=== PATIENT | female | born 1930 | race Two or more races ===

== ENCOUNTER 2017-01-18 12:26 | Inpatient (IN) | payer BC, MEDICAID ==
[~2017-01-18] VITALS: Ht 170.2 cm; Wt 76.2 kg
[2017-01-18] MEDS ORDERED: IV SET PRIMARY 1 EA INFUS.SET MC ONE (12:45)
[2017-01-18] MEDS ORDERED: IV NS 0.9% 500 ML IV ONE ×2 (12:45→13:25)
[2017-01-18] MEDS ORDERED: MORPHINE SULFATE INJ 2 MG/ML DISP.SYRIN ONE (12:45)
[2017-01-18 12:48] LABS: BASOPHILS # (AUTO) 0.3 /CMM (0.0-0.2); BASOPHILS % (AUTO) 4.9 % (0.0-2.0); DIFF TOTAL % 100 %; EOSINOPHILS # (AUTO) 0.2 /CMM (0.0-0.7); EOSINOPHILS % (AUTO) 2.3 % (0.0-6.0); HEMATOCRIT 44 % (33-45); HEMOGLOBIN 14.5 g/dL (11.5-14.8); LYMPHOCYTES # (AUTO) 1.9 /CMM (0.8-4.8); LYMPHOCYTES % (AUTO) 27.5 % (20.0-44.0); MEAN CORPUSCULAR HEMOGLOBIN 30 PG (26.0-33.0); MEAN CORPUSCULAR HGB CONC 33 g/dl (31.0-36.0); MEAN CORPUSCULAR VOLUME 90 fL (82-100); MONOCYTES # (AUTO) 0.5 /CMM (0.1-1.30); MONOCYTES % (AUTO) 7.8 % (2.0-12.0); NEUTROPHILS % (AUTO) 57.5 % (43.0-81.0); PLATELET COUNT (AUTO) 228 /CMM (150-450); RED BLOOD CELL COUNT(AUTO) 4.86 MIL/uL (4.0-5.2); WHITE BLOOD COUNT (AUTO) 6.9 K/uL (4.3-11.0)
[2017-01-18] MEDS ORDERED: MORPHINE SULFATE INJ 2 MG/ML DISP.SYRIN IV ONE (13:00)
[2017-01-18] MEDS ORDERED: IV NS 0.9% 500 ML BAG IV ONE (13:00)
[2017-01-18 13:01] LABS: INR 1.1 (0.87-1.13); PROTHROMBIN TIME 11.5 SECS (9.5-12.7)
[2017-01-18 13:04] LABS: ANION GAP 13 (5-14); CARBON DIOXIDE 26 mmol/L (21-32); CHLORIDE 109 mmol/L (98-107); CREATININE 0.9 mg/dL (0.6-1.3); GLUCOSE 117 mg/dL (74-106); POTASSIUM 3.8 mmol/L (3.5-5.1); SODIUM SERUM 144 mmol/L (136-145); UREA NITROGEN, BLOOD 32 mg/dL (7-18)
[2017-01-18 13:10] LABS: ALANINE AMINOTRANSFERASE 14 U/L (12-78); ALBUMIN 3.5 g/dL (3.4-5.0); ASPARTATE AMINOTRANSFERASE 18 U/L (15-37); BILIRUBIN,DIRECT 0.2 mg/dL (0.0-0.2); BILIRUBIN,TOTAL 0.6 mg/dL (0.2-1.0); INDIRECT BILIRUBIN 0.4 mg/dL (0.0-1.1); TOTAL PROTEIN, SERUM 7.6 g/dL (6.4-8.2)
[2017-01-18 13:13] LABS: TROPONIN I < 0.017 ng/mL (0.00-0.056)
[2017-01-18] MEDS ORDERED: PROPOFOL 20 ML IV ONE (13:24)
[2017-01-18] MEDS ORDERED: PROPOFOL 200 MG/20 ML VIAL IV ONE (13:30)
[2017-01-18] MEDS ORDERED: LOSA1TAB35 PO (14:07)
[2017-01-18] MEDS ORDERED: ERGO500047 PO (14:07)
[2017-01-18] MEDS ORDERED: ASPI81TA2 PO (14:07)
[2017-01-18 16:00] VITALS: BP 145/69
[2017-01-18] MEDS ORDERED: ZOLPIDEM TARTRATE 5 MG TABLET PO PRN (19:00)
[2017-01-18] MEDS ORDERED: MAG HYDROX/AL HYDROX/SIMETH 30 ML UDC PO PRN (19:00)
[2017-01-18] MEDS ORDERED: MAGNESIUM HYDROXIDE 30 ML UDC PO PRN (19:00)
[2017-01-18] MEDS ORDERED: ONDANSETRON HCL/PF 4 MG/2 ML VIAL IVP PRN (19:00)
[2017-01-18] MEDS ORDERED: ACETAMINOPHEN 325 MG TABLET PO PRN (19:00)
[2017-01-18] MEDS ORDERED: Z GUARD REMEDY 2 OZ OINT TP PRN (19:00)
[2017-01-18 20:00] VITALS: BP 136/57
[2017-01-18] MEDS: HYDROCODONE/APAP 5/325MG 1 EACH TABLET PO PRN (21:18)
[2017-01-18] MEDS: ENOXAPARIN SODIUM 80 MG/0.8 ML DISP.SYRIN SQ SCH (21:21)
[2017-01-19] VITALS: BP 130/60
[2017-01-19 00:11] VITALS: BP 130/60
[2017-01-19 04:00] VITALS: BP 130/65
[2017-01-19 06:49] VITALS: BP 125/65
[2017-01-19 07:25] LABS: BASOPHILS % (AUTO) 0.5 % (0.0-2.0); DIFF TOTAL % 100 %; EOSINOPHILS # (AUTO) 0.2 /CMM (0.0-0.7); HEMATOCRIT 39 % (33-45); HEMOGLOBIN 12.9 g/dL (11.5-14.8); LYMPHOCYTES # (AUTO) 1.1 /CMM (0.8-4.8); LYMPHOCYTES % (AUTO) 21.1 % (20.0-44.0); MEAN CORPUSCULAR HEMOGLOBIN 31 PG (26.0-33.0); MEAN CORPUSCULAR HGB CONC 33 g/dl (31.0-36.0); MEAN CORPUSCULAR VOLUME 92 fL (82-100); MONOCYTES # (AUTO) 0.5 /CMM (0.1-1.30); MONOCYTES % (AUTO) 9.8 % (2.0-12.0); NEUTROPHILS # (AUTO) 3.4 /CMM (1.8-8.9); NEUTROPHILS % (AUTO) 64.6 % (43.0-81.0); PLATELET COUNT (AUTO) 174 /CMM (150-450); RED BLOOD CELL COUNT(AUTO) 4.22 MIL/uL (4.0-5.2); WHITE BLOOD COUNT (AUTO) 5.3 K/uL (4.3-11.0)
[2017-01-19 07:37] LABS: CALCIUM, SERUM 8.9 mg/dL (8.5-10.1); CREATININE 0.8 mg/dL (0.6-1.3); PHOSPHORUS 3.6 mg/dL (2.5-4.9)
[2017-01-19] MEDS ORDERED: Medication Not On Formulary EA (Losartan/Hydrochlorothiazide (Losartan-Hctz 100-12.5 Mg PO SCH (09:00)
[2017-01-19] MEDS: ASPIRIN 81 MG TAB.CHEW PO SCH (09:42)
[2017-01-19] MEDS: PANTOPRAZOLE 40 MG TABLET.DR PO SCH (09:42)
[2017-01-19] MEDS: LOSARTAN POTASSIUM 50 MG TABLET PO SCH (09:43)
[2017-01-19] MEDS: HYDROCHLOROTHIAZIDE 25 MG TABLET PO SCH (09:43)
[2017-01-19] MEDS: ENOXAPARIN SODIUM 80 MG/0.8 ML DISP.SYRIN SQ SCH ×2 (09:44→21:22)
[2017-01-19] MEDS ORDERED: IV SET PRIMARY PUMP SET 1 EA INFUS.SET MC ONE (15:07)
[2017-01-19] MEDS: Magnesium 1GM/D5W 100ML PREMIX 100 ML IV SCH ×2 (15:12→17:34)
[2017-01-19] MEDS: HYDROCODONE/APAP 5/325MG 1 EACH TABLET PO PRN (15:12)
[2017-01-19 16:21] VITALS: BP 129/60
[2017-01-19 20:00] VITALS: BP 141/79
[2017-01-20 07:34] LABS: CALCIUM, SERUM 9.9 mg/dL (8.5-10.1); CREATININE 0.7 mg/dL (0.6-1.3); POTASSIUM 4.1 mmol/L (3.5-5.1)
[2017-01-20 07:38] LABS: BASOPHILS % (AUTO) 0.7 % (0.0-2.0); DIFF TOTAL % 100 %; EOSINOPHILS # (AUTO) 0.2 /CMM (0.0-0.7); EOSINOPHILS % (AUTO) 3.6 % (0.0-6.0); HEMATOCRIT 41 % (33-45); HEMOGLOBIN 13.5 g/dL (11.5-14.8); LYMPHOCYTES # (AUTO) 1.3 /CMM (0.8-4.8); LYMPHOCYTES % (AUTO) 22.7 % (20.0-44.0); MEAN CORPUSCULAR HEMOGLOBIN 30 PG (26.0-33.0); MEAN CORPUSCULAR HGB CONC 33 g/dl (31.0-36.0); MEAN CORPUSCULAR VOLUME 91 fL (82-100); MONOCYTES # (AUTO) 0.5 /CMM (0.1-1.30); MONOCYTES % (AUTO) 9.3 % (2.0-12.0); NEUTROPHILS # (AUTO) 3.6 /CMM (1.8-8.9); NEUTROPHILS % (AUTO) 63.7 % (43.0-81.0); PLATELET COUNT (AUTO) 181 /CMM (150-450); WHITE BLOOD COUNT (AUTO) 5.6 K/uL (4.3-11.0)
[2017-01-20 08:00] VITALS: BP 151/72
[2017-01-20] MEDS: PANTOPRAZOLE 40 MG TABLET.DR PO SCH (08:06)
[2017-01-20] MEDS: ERGOCALCIFEROL (VITAMIN D 2) 50,000 UNIT CAPSULE PO SCH (08:06)
[2017-01-20] MEDS: HYDROCHLOROTHIAZIDE 25 MG TABLET PO SCH (08:07)
[2017-01-20] MEDS: ASPIRIN 81 MG TAB.CHEW PO SCH (08:07)
[2017-01-20] MEDS: ENOXAPARIN SODIUM 80 MG/0.8 ML DISP.SYRIN SQ SCH ×2 (08:08→21:13)
[2017-01-20] MEDS: LOSARTAN POTASSIUM 50 MG TABLET PO SCH (08:08)
[2017-01-20] MEDS: HYDROCODONE/APAP 5/325MG 1 EACH TABLET PO PRN (15:41)
[2017-01-20 16:00] VITALS: BP 148/79
[2017-01-20 20:00] VITALS: BP 117/53
[2017-01-20 22:00] VITALS: BP 117/53
[2017-01-21] MEDS: HYDROCODONE/APAP 5/325MG 1 EACH TABLET PO PRN ×2 (01:19→15:24)
[2017-01-21 08:00] VITALS: BP 119/60
[2017-01-21] MEDS: HYDROCHLOROTHIAZIDE 25 MG TABLET PO SCH (08:30)
[2017-01-21] MEDS: LOSARTAN POTASSIUM 50 MG TABLET PO SCH (08:31)
[2017-01-21] MEDS: ASPIRIN 81 MG TAB.CHEW PO SCH (08:31)
[2017-01-21] MEDS: PANTOPRAZOLE 40 MG TABLET.DR PO SCH (08:31)
[2017-01-21] MEDS: ENOXAPARIN SODIUM 80 MG/0.8 ML DISP.SYRIN SQ SCH ×2 (08:36→21:46)
[2017-01-21] MEDS ORDERED: IV SET PRIMARY PUMP SET 1 EA INFUS.SET MC ONE (10:11)
[2017-01-21] MEDS: IV NS 0.9% 1,000 ML IV PRN ×2 (10:20→18:10)
[2017-01-21 11:19] LABS: TROPONIN I < 0.017 ng/mL (0.00-0.056)
[2017-01-21 11:26] LABS: THYROID STIMULATING HORMONE 0.709 uIU/mL (0.358-3.74)
[2017-01-21 16:00] VITALS: BP 110/72
[2017-01-21 20:00] VITALS: BP 143/71
[2017-01-21 20:26] VITALS: BP 143/71
[2017-01-22] MEDS: IV NS 0.9% 1,000 ML IV PRN (00:59)
[2017-01-22] MEDS: HYDROCODONE/APAP 5/325MG 1 EACH TABLET PO PRN ×3 (04:23→17:38)
[2017-01-22 07:58] LABS: CALCIUM, SERUM 9.4 mg/dL (8.5-10.1); CREATININE 0.6 mg/dL (0.6-1.3); PHOSPHORUS 3.5 mg/dL (2.5-4.9)
[2017-01-22 08:00] VITALS: BP 136/70
[2017-01-22] MEDS: PANTOPRAZOLE 40 MG TABLET.DR PO SCH (08:12)
[2017-01-22] MEDS: ASPIRIN 81 MG TAB.CHEW PO SCH (08:12)
[2017-01-22] MEDS: HYDROCHLOROTHIAZIDE 25 MG TABLET PO SCH (08:13)
[2017-01-22] MEDS: LOSARTAN POTASSIUM 50 MG TABLET PO SCH (08:13)
[2017-01-22] MEDS: ENOXAPARIN SODIUM 80 MG/0.8 ML DISP.SYRIN SQ SCH (08:14)
[2017-01-22 08:26] LABS: ALBUMIN 2.8 g/dL (3.4-5.0); BILIRUBIN,TOTAL 0.4 mg/dL (0.2-1.0); TOTAL PROTEIN, SERUM 6.8 g/dL (6.4-8.2)
[2017-01-22] MEDS: Z GUARD REMEDY 2 OZ OINT TP SCH (10:30)
[2017-01-22] MEDS ORDERED: IV NS 0.9% 1,000 ML IV PRN (10:46)
[2017-01-22] MEDS ORDERED: SECONDARY IV SET 1 EA INFUS.SET MC ONE (11:06)
[2017-01-22] MEDS: Magnesium 1GM/D5W 100ML PREMIX 100 ML IV SCH ×2 (11:10→12:26)
[2017-01-22 16:17] VITALS: BP 148/69
[2017-01-22 19:00] VITALS: BP 124/63
[2017-01-22] MEDS ORDERED: ENOXAPARIN SODIUM 80 MG/0.8 ML DISP.SYRIN SQ ONE (21:00)
[2017-01-23] VITALS (10 sets, daily range): BP systolic 110–143; BP diastolic 45–76
[2017-01-23] MEDS: HYDROCODONE/APAP 5/325MG 1 EACH TABLET PO PRN ×2 (03:42→20:33)
[2017-01-23 07:25] LABS: BASOPHILS % (AUTO) 0.2 % (0.0-2.0); DIFF TOTAL % 100 %; EOSINOPHILS # (AUTO) 0.3 /CMM (0.0-0.7); EOSINOPHILS % (AUTO) 5.3 % (0.0-6.0); HEMATOCRIT 37 % (33-45); HEMOGLOBIN 12.6 g/dL (11.5-14.8); LYMPHOCYTES # (AUTO) 1.2 /CMM (0.8-4.8); LYMPHOCYTES % (AUTO) 23.9 % (20.0-44.0); MEAN CORPUSCULAR HEMOGLOBIN 31 PG (26.0-33.0); MEAN CORPUSCULAR HGB CONC 34 g/dl (31.0-36.0); MEAN CORPUSCULAR VOLUME 91 fL (82-100); MONOCYTES # (AUTO) 0.4 /CMM (0.1-1.30); MONOCYTES % (AUTO) 9.1 % (2.0-12.0); NEUTROPHILS % (AUTO) 61.5 % (43.0-81.0); PLATELET COUNT (AUTO) 180 /CMM (150-450); RED BLOOD CELL COUNT(AUTO) 4.09 MIL/uL (4.0-5.2); WHITE BLOOD COUNT (AUTO) 4.9 K/uL (4.3-11.0)
[2017-01-23] MEDS: PANTOPRAZOLE 40 MG TABLET.DR PO SCH (07:30)
[2017-01-23 07:49] LABS: ALBUMIN 2.7 g/dL (3.4-5.0); BILIRUBIN,TOTAL 0.4 mg/dL (0.2-1.0); CALCIUM, SERUM 9.2 mg/dL (8.5-10.1); CREATININE 0.7 mg/dL (0.6-1.3); PHOSPHORUS 2.9 mg/dL (2.5-4.9); POTASSIUM 4.2 mmol/L (3.5-5.1); TOTAL PROTEIN, SERUM 6.4 g/dL (6.4-8.2)
[2017-01-23] MEDS: LOSARTAN POTASSIUM 50 MG TABLET PO SCH (09:00)
[2017-01-23] MEDS: ASPIRIN 81 MG TAB.CHEW PO SCH (09:00)
[2017-01-23] MEDS: Z GUARD REMEDY 2 OZ OINT TP SCH (09:00)
[2017-01-23] MEDS: HYDROCHLOROTHIAZIDE 25 MG TABLET PO SCH (09:00)
[2017-01-23] MEDS ORDERED: BUPIVACAINE MPF 0.5% W/EPI INJ 30 ML VIAL ONE (09:12)
[2017-01-23] MEDS ORDERED: KETOROLAC TROMETHAMINE INJ 30 MG/ML VIAL ONE (09:12)
[2017-01-23] MEDS ORDERED: BACITRACIN 50000 UNITS/VIAL ONE (09:12)
[2017-01-23] MEDS ORDERED: MIDAZOLAM HCL 2 MG/2ML VIAL ONE (09:22)
[2017-01-23] MEDS ORDERED: ROCURONIUM BROMIDE 50 MG/5 ML ONE (09:23)
[2017-01-23] MEDS ORDERED: FENTANYL PF 100MCG/2ML AMPUL ONE ×3 (09:23→11:16)
[2017-01-23] MEDS ORDERED: SEVOFLURANE 250 ML BOTTLE IH ONE (09:28)
[2017-01-23] MEDS ORDERED: TRANEXAMIC ACID 3,000 MG in SODIUM CHLORIDE IRRIG SOLUTION 70 ML IR ONE (09:30)
[2017-01-23] MEDS ORDERED: IV NS 0.9% 1,000 ML ONE (11:09)
[2017-01-23 11:15] LABS: HEMOGLOBIN 11.6 g/dL (11.5-14.8)
[2017-01-23] MEDS ORDERED: ZOFRAN 4mg/2ML IV PRN (13:00)
[2017-01-23] MEDS ORDERED: TYLENOL 650 MG TABLET PO PRN (13:00)
[2017-01-23] MEDS ORDERED: AMBIEN 5 MG TABLET PO PRN (13:00)
[2017-01-23] MEDS ORDERED: COLACE 250 MG CAPSULE PO PRN (13:00)
[2017-01-23] MEDS ORDERED: DULCOLAX 10 MG/SUPP.RECT RC PRN (13:00)
[2017-01-23] MEDS ORDERED: SENOKOT 8.6 MG TABLET PO PRN ×2 (13:00)
[2017-01-23] MEDS: IV LR 1000 ML 1,000 ML IV PRN (13:01)
[2017-01-23] MEDS: HYDROMORPHONE 1 MG/1 ML DISP.SYRIN IV PRN (13:01)
[2017-01-23] MEDS: ANCEF 1 G in IV D5W 50 ML IV SCH ×2 (14:34→20:29)
[2017-01-23] MEDS ORDERED: RIVAROXABAN 15 MG TABLET PO SCH (17:00)
[2017-01-23] MEDS: RIVAROXABAN 10 MG TABLET PO SCH (17:13)
[2017-01-23] MEDS ORDERED: ANESTHESIA TRAY IN PYXIS 1 EA TRAY MC ONE (18:36)
[2017-01-24] VITALS (9 sets, daily range): BP systolic 103–128; BP diastolic 44–57
[2017-01-24] MEDS: IV LR 1000 ML 1,000 ML IV PRN (03:59)
[2017-01-24 06:36] LABS: BASOPHILS % (AUTO) 0.1 % (0.0-2.0); DIFF TOTAL % 100 %; EOSINOPHILS % (AUTO) 0.3 % (0.0-6.0); HEMATOCRIT 27 % (33-45); HEMOGLOBIN 9.3 g/dL (11.5-14.8); LYMPHOCYTES # (AUTO) 1.3 /CMM (0.8-4.8); LYMPHOCYTES % (AUTO) 13.8 % (20.0-44.0); MEAN CORPUSCULAR HEMOGLOBIN 32 PG (26.0-33.0); MEAN CORPUSCULAR HGB CONC 34 g/dl (31.0-36.0); MEAN CORPUSCULAR VOLUME 92 fL (82-100); MONOCYTES # (AUTO) 0.9 /CMM (0.1-1.30); MONOCYTES % (AUTO) 9.6 % (2.0-12.0); NEUTROPHILS # (AUTO) 7.4 /CMM (1.8-8.9); NEUTROPHILS % (AUTO) 76.2 % (43.0-81.0); PLATELET COUNT (AUTO) 196 /CMM (150-450); RED BLOOD CELL COUNT(AUTO) 2.96 MIL/uL (4.0-5.2); WHITE BLOOD COUNT (AUTO) 9.8 K/uL (4.3-11.0)
[2017-01-24 07:00] LABS: ALBUMIN 2.3 g/dL (3.4-5.0); BILIRUBIN,TOTAL 0.3 mg/dL (0.2-1.0); CALCIUM, SERUM 8.8 mg/dL (8.5-10.1); CREATININE 0.9 mg/dL (0.6-1.3); PHOSPHORUS 3.4 mg/dL (2.5-4.9); POTASSIUM 4.8 mmol/L (3.5-5.1); TOTAL PROTEIN, SERUM 5.4 g/dL (6.4-8.2)
[2017-01-24] MEDS ORDERED: RIVAROXABAN 10 MG TABLET PO SCH (09:00)
[2017-01-24] MEDS: HYDROCHLOROTHIAZIDE 25 MG TABLET PO SCH (09:00)
[2017-01-24] MEDS: LOSARTAN POTASSIUM 50 MG TABLET PO SCH (09:00)
[2017-01-24] MEDS: PANTOPRAZOLE 40 MG TABLET.DR PO SCH (09:26)
[2017-01-24] MEDS: Z GUARD REMEDY 2 OZ OINT TP SCH (09:27)
[2017-01-24] MEDS ORDERED: IV SET PRIMARY PUMP SET 1 EA INFUS.SET MC ONE (10:06)
[2017-01-24] MEDS: IV NS 0.9% 1,000 ML IV PRN (10:10)
[2017-01-24 10:21] LABS: IRON, SERUM 49 ug/dl (50-175); PERCENT SATURATION 36 % (14-33); TOTAL IRON BINDING CAPACITY 137 ug/dl (250-450)
[2017-01-24] MEDS: HYDROCODONE/APAP 5/325MG 1 EACH TABLET PO PRN (13:14)
[2017-01-24] MEDS: RIVAROXABAN 10 MG TABLET PO SCH (17:21)
[2017-01-24] MEDS ORDERED: IV NS 0.9% 250 ML IV ONE (18:55)
[2017-01-24] MEDS ORDERED: BLOOD IV SET 1 EA INFUS.SET MC ONE (18:56)
[2017-01-25] VITALS (15 sets, daily range): BP systolic 104–147; BP diastolic 49–70
[2017-01-25] MEDS: HYDROMORPHONE 1 MG/1 ML DISP.SYRIN IV PRN ×3 (06:47→14:01)
[2017-01-25 08:13] LABS: BASOPHILS % (AUTO) 0.4 % (0.0-2.0); DIFF TOTAL % 100 %; EOSINOPHILS # (AUTO) 0.1 /CMM (0.0-0.7); EOSINOPHILS % (AUTO) 1.7 % (0.0-6.0); HEMATOCRIT 30 % (33-45); LYMPHOCYTES # (AUTO) 1.8 /CMM (0.8-4.8); MEAN CORPUSCULAR HEMOGLOBIN 30 PG (26.0-33.0); MEAN CORPUSCULAR HGB CONC 33 g/dl (31.0-36.0); MEAN CORPUSCULAR VOLUME 90 fL (82-100); MONOCYTES % (AUTO) 11.4 % (2.0-12.0); NEUTROPHILS # (AUTO) 5.4 /CMM (1.8-8.9); NEUTROPHILS % (AUTO) 64.5 % (43.0-81.0); PLATELET COUNT (AUTO) 167 /CMM (150-450); RED BLOOD CELL COUNT(AUTO) 3.32 MIL/uL (4.0-5.2); WHITE BLOOD COUNT (AUTO) 8.4 K/uL (4.3-11.0)
[2017-01-25 08:43] LABS: ALBUMIN 2.3 g/dL (3.4-5.0); BILIRUBIN,TOTAL 1.1 mg/dL (0.2-1.0); CALCIUM, SERUM 8.3 mg/dL (8.5-10.1); CREATININE 0.7 mg/dL (0.6-1.3); PHOSPHORUS 2.7 mg/dL (2.5-4.9); POTASSIUM 4.3 mmol/L (3.5-5.1); TOTAL PROTEIN, SERUM 5.5 g/dL (6.4-8.2)
[2017-01-25] MEDS: PANTOPRAZOLE 40 MG TABLET.DR PO SCH (08:44)
[2017-01-25] MEDS: LOSARTAN POTASSIUM 50 MG TABLET PO SCH (08:45)
[2017-01-25] MEDS: Z GUARD REMEDY 2 OZ OINT TP SCH (08:46)
[2017-01-25] MEDS: HYDROCODONE/APAP 5/325MG 1 EACH TABLET PO PRN ×2 (09:10→17:36)
[2017-01-25] MEDS: IV NS 0.9% 1,000 ML IV PRN (12:14)
[2017-01-25] MEDS: RIVAROXABAN 10 MG TABLET PO SCH (17:05)
[2017-01-26] MEDS: HYDROMORPHONE 1 MG/1 ML DISP.SYRIN IV PRN ×4 (00:38→15:52)
[2017-01-26] MEDS: IV NS 0.9% 1,000 ML IV PRN ×2 (03:30→16:09)
[2017-01-26 08:07] VITALS: BP 115/82
[2017-01-26] MEDS: LOSARTAN POTASSIUM 50 MG TABLET PO SCH (08:59)
[2017-01-26] MEDS: PANTOPRAZOLE 40 MG TABLET.DR PO SCH (09:00)
[2017-01-26] MEDS: Z GUARD REMEDY 2 OZ OINT TP SCH (09:00)
[2017-01-26 09:52] LABS: HEMOGLOBIN 8.1 g/dL (11.5-14.8)
[2017-01-26] MEDS ORDERED: Sennosides PO (11:04)
[2017-01-26] MEDS ORDERED: HYDR-3326 PO (11:04)
[2017-01-26] MEDS ORDERED: RIVA10TA PO (11:04)
[2017-01-26 16:00] VITALS: BP 129/62
[2017-01-26] MEDS: RIVAROXABAN 10 MG TABLET PO SCH (18:08)
[2017-01-26 20:00] VITALS: BP 126/45
[2017-01-26 22:00] VITALS: BP 129/45
[2017-01-27] MEDS: HYDROMORPHONE 1 MG/1 ML DISP.SYRIN IV PRN ×3 (01:41→10:30)
[2017-01-27] MEDS: IV NS 0.9% 1,000 ML IV PRN (06:38)
[2017-01-27 08:00] VITALS: BP 122/51
[2017-01-27 08:23] VITALS: BP 122/59
[2017-01-27] MEDS: PANTOPRAZOLE 40 MG TABLET.DR PO SCH (08:23)
[2017-01-27] MEDS: Z GUARD REMEDY 2 OZ OINT TP SCH (08:23)
[2017-01-27] MEDS: ERGOCALCIFEROL (VITAMIN D 2) 50,000 UNIT CAPSULE PO SCH (08:23)
[2017-01-27] MEDS: LOSARTAN POTASSIUM 50 MG TABLET PO SCH (08:23)
[2017-01-27] MEDS ORDERED: MENTHOL/CETYLPYRD (CEPACOL) 1 LOZ LOZENGE PO PRN (10:00)
[2017-01-28 11:26] LABS: *SPE ALBUMIN 1.9 g/dL (2.9-4.4)
== END 2017-01-27 12:45 | disposition hospice, home (50) | DRG 301 ==
LOC: ER 12:29 → TELE 14:45 → MED 01-19 08:54
PROVIDERS: ADMIT Family Medicine; ATTEND Family Medicine
DX: T84.021A Dislocation of internal left hip prosthesis, initial encounter (principal); N17.0 Acute kidney failure with tubular necrosis; I48.91 Unspecified atrial fibrillation; E55.9 Vitamin D deficiency, unspecified; D68.59 Other primary thrombophilia; I10 Essential (primary) hypertension; Y79.2 Prosthetic and other implants, materials and accessory orthopedic devices associated with adverse incidents; Y92.009 Unspecified place in unspecified non-institutional (private) residence as the place of occurrence of the external cause; M16.11 Unilateral primary osteoarthritis, right hip; M85.80 Other specified disorders of bone density and structure, unspecified site; Z91.81 History of falling; D62 Acute posthemorrhagic anemia; I27.2 Other secondary pulmonary hypertension; I34.0 Nonrheumatic mitral (valve) insufficiency; I35.1 Nonrheumatic aortic (valve) insufficiency; I70.0 Atherosclerosis of aorta; I82.411 Acute embolism and thrombosis of right femoral vein
CPT/HCPCS: 36415; 71010-TC; 72170-TC; 73020; 73510-TC; 80048-TC; 80053-TC; 80061-TC; 80076-TC; 82728-TC; 83540-TC; 83735-TC; 84100-TC; 84155; 84165; 84439-TC; 84443-TC; 84484-TC; 85025-TC; 85027-TC; 85730-TC; 86850-TC; 86921-TC; 87081-TC; 93307-TC; 93970-TC; 97001-TC; 97530-TC; A4217; A6253; A6403; J0690; J1170; J1650; J1885; J2250; J2270; J2704; J3010; J3475; J3490; J7030; J7040; J7050; J7060; J7120; P9016-BL

== ENCOUNTER 2017-02-13 16:17 | Inpatient (IN) | payer BC ==
[~2017-02-13] VITALS: Ht 165.1 cm; Wt 67.6 kg
[~2017-02-13 16:17] MED LIST: ASPI81TA2 PO; ERGO500047 PO; HYDR-3326 PO; LOSA1TAB35 PO; RIVA10TA PO; Sennosides PO
--- NOTE | 2017-02-13 16:20 | NUR ---
PT BIBRA FROM HOME TO ER BED 09. PER REPORT, FEVER W/ NOTED CLOUDY URINE IN THE BAG. GOWNED AND PLACED ON MONITOR. TACHYCARDIC SUPERVISOR BOAT OUTFITTING. 100 F RECTAL TEMP. PT IS VERBALLY NON RESPONSIVE. AWAITNG MD HE.
--- NOTE | 2017-02-13 16:24 | NUR ---
DR DILLON AT BEDSIDE FOR EVAL.
[2017-02-13] MEDS ORDERED: IV NS 0.9% 500 ML BAG IV ONE (16:30)
--- NOTE | 2017-02-13 16:36 | NUR ---
IV LINE STARTEED BLOOD DRAWN AND SENT TO LAB.
[2017-02-13] MEDS ORDERED: IV NS 0.9% 500 ML IV ONE (16:40)
[2017-02-13] MEDS ORDERED: IV SET PRIMARY 1 EA INFUS.SET MC ONE (16:40)
[2017-02-13 16:46] LABS: BASOPHILS # (AUTO) 0.1 /CMM (0.0-0.2); BASOPHILS % (AUTO) 0.6 % (0.0-2.0); EOSINOPHILS # (AUTO) 0.2 /CMM (0.0-0.7); EOSINOPHILS % (AUTO) 2.1 % (0.0-6.0); HEMATOCRIT 33 % (33-45); HEMOGLOBIN 10.7 g/dL (11.5-14.8); LYMPHOCYTES # (AUTO) 1.5 /CMM (0.8-4.8); LYMPHOCYTES % (AUTO) 18.1 % (20.0-44.0); MEAN CORPUSCULAR HEMOGLOBIN 30 PG (26.0-33.0); MEAN CORPUSCULAR HGB CONC 32 g/dl (31.0-36.0); MEAN CORPUSCULAR VOLUME 92 fL (82-100); MONOCYTES # (AUTO) 0.5 /CMM (0.1-1.30); MONOCYTES % (AUTO) 6.4 % (2.0-12.0); NEUTROPHILS % (AUTO) 72.8 % (43.0-81.0); PLATELET COUNT (AUTO) 367 /CMM (150-450); RDW COEFFICIENT OF VARIATION 15.2 (11.5-15.0); RED BLOOD CELL COUNT(AUTO) 3.62 MIL/uL (4.0-5.2); WHITE BLOOD COUNT (AUTO) 8.3 K/uL (4.3-11.0)
[2017-02-13 16:59] LABS: CALCIUM, SERUM 9.5 mg/dL (8.5-10.1); CARBON DIOXIDE 27 mmol/L (21-32); CHLORIDE 107 mmol/L (98-107); CREATININE 0.8 mg/dL (0.6-1.3); GLUCOSE 116 mg/dL (74-106); POTASSIUM 4.2 mmol/L (3.5-5.1); SODIUM SERUM 144 mmol/L (136-145); UREA NITROGEN, BLOOD 23 mg/dL (7-18)
[2017-02-13 17:05] LABS: ALANINE AMINOTRANSFERASE 13 U/L (12-78); ALBUMIN 3.1 g/dL (3.4-5.0); ALKALINE PHOSPHATASE 143 U/L (46-116); ASPARTATE AMINOTRANSFERASE 23 U/L (15-37); BILIRUBIN,DIRECT 0.4 mg/dL (0.0-0.2); BILIRUBIN,TOTAL 1.1 mg/dL (0.2-1.0); INR 1.1 (0.87-1.13); PROTHROMBIN TIME 11.8 SECS (9.5-12.7); TOTAL PROTEIN, SERUM 7.5 g/dL (6.4-8.2)
[2017-02-13 17:07] LABS: TROPONIN I < 0.017 ng/mL (0.00-0.056)
[2017-02-13 17:09] LABS: LACTIC ACID 1.4 mmol/L (0.4-2.0)
--- NOTE | 2017-02-13 17:37 | NUR ---
PT TO RADIOLOGY FOR HEAD CT SCAN VIA [facility].
[2017-02-13 18:03] LABS: APPEARANCE,URINE CLOUDY (CLEAR); BILIRUBIN,URINE 1+ (NEGATIVE); BLOOD, URINE 3+ Ery/uL (NEGATIVE); COLOR,URINE YELLOW (YELLOW); KETONES,URINE TRACE (NEGATIVE); LEUKOCYTE ESTERASE ,URINE 1+ (NEGATIVE); NITRITE, URINE POSITIVE (NEGATIVE); PROTEIN,URINE 2+ mg/dl (NEGATIVE); UGLUCOSE NEGATIVE (NEGATIVE); UROBILINOGEN,URINE >=8.0 EU/dL (0.2)
[2017-02-13 18:13] LABS: ADD URINE CULTURE YES; BACTERIA,URINE Many /HPF (None Seen); SQUAMOUS EPITHELIAL CELL,UR Few /HPF (None Seen); WBC,URINE 51-80 /HPF (0-3)
[2017-02-13 18:14] LABS: URINE AMORPHOUS PHOSPHATES Moderate /HPF (None Seen)
--- NOTE | 2017-02-13 18:14 | NUR ---
PAGED ELIZA HILTON.
--- NOTE | 2017-02-13 18:22 | NUR ---
REPORT GIVEN TO RUSSEL. PT AWAITING TRANSFER TO FLOOR.
[2017-02-13] MEDS ORDERED: CEFTRIAXONE 1 G in IV D5W 50 ML IV ONE (18:30)
[2017-02-13] MEDS ORDERED: CEFTRIAXONE 1GM BAG (ER ONLY) 50 ML IV ONE (18:33)
[2017-02-13] MEDS ORDERED: IV SET PRIMARY PUMP SET 1 EA INFUS.SET MC ONE ×2 (18:33→20:07)
[2017-02-13] MEDS ORDERED: HYDROCODONE/APAP 5/325MG 1 EACH TABLET PO PRN (19:00)
[2017-02-13] MEDS ORDERED: Z GUARD REMEDY 2 OZ OINT TP PRN (19:00)
[2017-02-13] MEDS ORDERED: ACETAMINOPHEN 325 MG TABLET PO PRN (19:00)
[2017-02-13] MEDS ORDERED: ONDANSETRON HCL/PF 4 MG/2 ML VIAL IVP PRN (19:00)
[2017-02-13] MEDS ORDERED: MAG HYDROX/AL HYDROX/SIMETH 30 ML UDC PO PRN (19:00)
--- NOTE | 2017-02-13 19:20 | NUR ---
RN NOTE Received patient from ER via gurney as accompanied by ER staff. Patient awake, verbally responsive. V/S BP111/65 T97.7 P99 R22 O2 sat 98% @RA. IV site on RAC #18 intact, continue on ATB (Rocephin) per ER nurse. Will endorse to next shift for BRAXTON.
--- NOTE | 2017-02-13 19:22 | NUR ---
RN NOTE Called Pharmacy and spoke with Jared to adjust timing for Rocephin order.
--- NOTE | 2017-02-13 19:30 | NUR ---
UNION CARPENTER INITIAL NOTE RECEIVED PT SLEEPING BUT EASILY AROUSED, FAMILY AT BEDSIDE, PT IS FARSI SPEAKING, FAMILY STATES THAT SHE IS CONFUSED AND HAS BEEN FOR 2DAYS NOW, ROCEPHIN IS CURRENTLY RUNNING THROUGH RIGHT AC #18, ACCORDING TO AM NURSE ATB WAS STARTED IN ER AND CONTINUED ONCE PT ARRIVED ON OUR FLOOR, NS WILL BE STARTED AT 75ML/HR FOR HYDRATION, PT WILL BE MAINTAINED CLEAN/DRY AND COMFORTABLE, SAFETY MEASURES WILL BE MAINTAINED, NEEDS WILL BE ANTICIPATED AND ATTENDED TO DURING HOURLY ROUNDS OR NEEDED.
[2017-02-13 20:00] VITALS: BP 137/55
[2017-02-13] MEDS: IV NS 0.9% 1,000 ML IV PRN (20:11)
[2017-02-13] MEDS ORDERED: MAGNESIUM HYDROXIDE 30 ML UDC PO PRN (22:00)
[2017-02-13] MEDS: SENNOSIDES 8.6 MG TABLET PO SCH (22:28)
[2017-02-14] VITALS: BP 144/90
[2017-02-14 04:00] VITALS: BP 129/79
--- NOTE | 2017-02-14 06:24 | NUR ---
HAND ALTERATIONS SEAMSTRESS CLOSING NOTE PT REMAINED STABLE DURING ELECTRICAL INSPECTOR, NO COMPLAINT OF PAIN OR RESPIRATORY DISTRESS NOTED, PT WAS ADMITTED WITH A KEARNEY CATHETER ALREADY IN PLACE, KEARNEY WAS D/C'd PER DOCTOR PARI CORRAL'S ORDER, WOUND CONSULT REQUESTED FOR LEFT HIP INCISION FOR HIP SURGERY DONE PRIOR TO ADMISSION, PT WAS KEPT CLEAN/DRY AND COMFORTABLE, SAFETY MEASURES MAINTAINED THROUGHOUT NIGHT, NEEDS ANTICIPATED AND ATTENDED TO, WILL ENDORSE TO INCOMING NURSE FOR BRAXTON.
[2017-02-14 06:44] LABS: BASOPHILS # (AUTO) 0.1 /CMM (0.0-0.2); BASOPHILS % (AUTO) 0.8 % (0.0-2.0); EOSINOPHILS # (AUTO) 0.3 /CMM (0.0-0.7); EOSINOPHILS % (AUTO) 4.1 % (0.0-6.0); HEMATOCRIT 29 % (33-45); HEMOGLOBIN 9.7 g/dL (11.5-14.8); LYMPHOCYTES # (AUTO) 1.1 /CMM (0.8-4.8); MEAN CORPUSCULAR HEMOGLOBIN 31 PG (26.0-33.0); MEAN CORPUSCULAR HGB CONC 34 g/dl (31.0-36.0); MEAN CORPUSCULAR VOLUME 92 fL (82-100); MONOCYTES # (AUTO) 0.5 /CMM (0.1-1.30); MONOCYTES % (AUTO) 7.1 % (2.0-12.0); NEUTROPHILS # (AUTO) 5.7 /CMM (1.8-8.9); PLATELET COUNT (AUTO) 277 /CMM (150-450); RDW COEFFICIENT OF VARIATION 15.1 (11.5-15.0); RED BLOOD CELL COUNT(AUTO) 3.15 MIL/uL (4.0-5.2); WHITE BLOOD COUNT (AUTO) 7.7 K/uL (4.3-11.0)
[2017-02-14 07:01] VITALS: BP 126/60
[2017-02-14 07:07] LABS: ALBUMIN 2.6 g/dL (3.4-5.0); BILIRUBIN,TOTAL 0.9 mg/dL (0.2-1.0); CALCIUM, SERUM 8.9 mg/dL (8.5-10.1); CREATININE 0.7 mg/dL (0.6-1.3); MAGNESIUM 1.8 mg/dL (1.8-2.4); THYROID STIMULATING HORMONE 0.567 uIU/mL (0.358-3.74); TOTAL PROTEIN, SERUM 6.6 g/dL (6.4-8.2)
--- NOTE | 2017-02-14 07:45 | NUR ---
[employer] OPERATIONS DUTY MANAGER OPENING RECEIVED PT A/OX1 AWAKE DENIES SOB DIFFICULTY BREATHING OR PAIN AT THIS TIME. PATIENT SAYS PAIN AGGRIVATED WITH MOVEMENT BUT NOT WANTING PAIN MEDICATIONS. PICS WILL BE TAKEN OF SKIN AND PATIENT PENDING WOUND CARE CONSULT. PATIENT STATES NO NEEDS. DRESSING NOT INTACT ON LEFT HIP CALLED FOR BORDERED DRESSING TO CHANGE. PT APPEARS STABLE AND IN POSITION OF COMFORT. CALL LIGHT IN REACH, BED LOWERED AND LOCKED, RAILS UPX3 FOR SAFETY AND WILL ROUND Q2H OR LESS PER NEEDS. BED ALARM ON
[2017-02-14 08:00] VITALS: BP 126/60
--- NOTE | 2017-02-14 08:34 | NUR ---
WOUND CARE CONSULT: PATIENT SEEN AND SKIN ASSESSMENT DONE. PATIENT ALERT, INCONTINENT, HAS DIFFICULTY TURNING AND REPOSITIONING DUE TO LEFT HIP PAIN, SURI 14, ON TRAVIS ISOFLEX OCTAVIA BED. PLS SEE TODAY'S SKIN ASSESSMENT IN PCS ALONG WITH RECOMMENDATIONS DISCUSSED WITH NURSING STAFF INCLUDING MOISTURE PROTECTION WITH Z GUARD AND PRESSURE PREVENTION MEASURES ORDERED. MD IN AGREEMENT WITH PLAN OF CARE. Addendum: 02/14/17 at 0838 by SHERRI ARMENTA WNDNU Amended: Links added.
[2017-02-14] MEDS: IV NS 0.9% 1,000 ML IV PRN (09:10)
[2017-02-14] MEDS: ASPIRIN 81 MG TAB.CHEW PO SCH (09:11)
[2017-02-14] MEDS: LOSARTAN POTASSIUM 50 MG TABLET PO SCH (09:14)
--- NOTE | 2017-02-14 10:07 | NUR ---
MS RN NOTES MESSAGE TO DR PEREIRA OFFICE FOR FOLLOW UP WITH PATIENT LEFT HIP INCISION. DAUGHTER IN LAW STATES A NURSE CAME A WHILE AGO AND REMOVED 7 KATHRYN ALSO THE EMT'S WHEN PATIENT WAS BEING BROUGHT INTO THE ER SAT PATIENT UP ALL THE WAY AND SHE IS AFRAID THEY OPENED INCISION BECAUSE BEFORE IT WAS NOT OPENED
--- NOTE | 2017-02-14 10:13 | NUR ---
MS RN NOTES CALLED CASE MANAGEMENT TALKED TO RAUL IN RE TO FAMILY INTERESTED IN LOOKING AT HOME HOME HEALTH AND SNF FOR PATIENT REHAB. PATIENT WAS AT HOME WITH THEM BEFORE HOSPITAL STAY AND THEY WERE NOT ABLE TO TAKE CARE OF HER THEY ALL WORK AND SHE WAS HOME ALONE UP TO 10 HOURS A DAY AND DID NOT MOVE MUCH
[2017-02-14] MEDS: HYDROGEL DRESSING 90 GM TUBE TP SCH (10:59)
--- NOTE | 2017-02-14 11:14 | NUR ---
MS RN NOTES NOTIFIED DR ELIZA HILTON OF URINE CULTURE RESULTS
--- NOTE | 2017-02-14 13:50 | NUR ---
MS RASMUSSEN NOTES PATIENT HAS NOT URINATED MUCH SINCE REMOVAL OF KEARNEY CATH. BLADDER SCAN SHOWING ALMOST 500ML. PATIENT DID TRY AND URINATE BUT BARELY URINATED. BLADDER SCANNED AFTER PATIENT URINATED BUT STILL OVER 300ML. PER STRAIGHT CATH CUCA. AWAITING ORDERS FOR CONTINUOUS STRAIGHT CATH ORDERS Addendum: 02/14/17 at 1718 by MACARENA MILES RN TIME AT 1550
--- NOTE | 2017-02-14 15:13 | NUR ---
MS RN NOTS PATIENT WORKING WITH PHYSICAL THERAPY
[2017-02-14 16:00] VITALS: BP 121/54
--- NOTE | 2017-02-14 16:30 | NUR ---
MS RN NOTES PATIENT STRAIGHT CATH SUCCESSFUL. 400ML REMOVED. NO COMPLICATIONS. PATIENT RESTING WELL AT THIS TIME
[2017-02-14] MEDS ORDERED: IV SET PRIMARY PUMP SET 1 EA INFUS.SET MC ONE ×2 (16:34→17:09)
[2017-02-14] MEDS: RIVAROXABAN 10 MG TABLET PO SCH (16:45)
[2017-02-14] MEDS ORDERED: SECONDARY IV SET 1 EA INFUS.SET MC ONE (17:11)
[2017-02-14] MEDS: CEFTRIAXONE 1 G in IV D5W 50 ML IV SCH (17:13)
--- NOTE | 2017-02-14 17:18 | NUR ---
MS RN NOTES PER DR HILTON OK TO STRAIGHT CATH Q6H PRN FOR URINE OVER 300ML.
--- NOTE | 2017-02-14 17:56 | NUR ---
MS RN NOTES BERNARDINO LOCKWOOD AWARE OF PATIENT LEFT HIP INCISION AND SLIGHT ODOR AND DRAINAGE AND THAT PATIENT HAS SOAKED THROUGH ONE MEPILEX TODAY.
--- NOTE | 2017-02-14 18:26 | NUR ---
MS RN CLOSING PT STABLE NO COMPLAINTS. ALL DUE MEDS GIVEN AND ALL NEEDS MET. IVF ORDERED. CLEAN DRY AND INTACT DRESSING TO LEFT HIP DRAINING DARK RED BLOOD CLEANSED WITH NS PRN DRESSING CHANGES. CALLED [facility] FOR MORE BORDERED MEPILEX FOR INSTRUMENT LENS GRINDER APPRENTICE. PATIENT WITH CALL LIGHT IN REACH, BED LOWERED AND LOCKED, RAILS UPX3 FOR SAFETY WITH BED ALARM ON. PATIENT TURNED Q2H TODAY AND HEELS AND ELBOWS OFFLOADED. PATIENT STABLE
--- NOTE | 2017-02-14 20:00 | NUR ---
MS PRODUCTION LINE ASSEMBLER INITIAL NOTES SEEN PT IN BED AWAKE AND ALERT ON SEMI FOWLERS POSITION WITH SIDE RAILS X2 UP. NO SIGNS OF ACUTE DISTRESS NOTED. STILL WITH IVF NS AT 75ML/HR ON HER LEFT FOREARM GAUGE 22. PATENT AND INTACT. DENIES ANY PAIN OR ANY DISCOMFORT ,DRESSING DRY AND INTACT. KEPT HER WARM AND COMFORTABLE AT ALL TIMES. PLACE CALL LIGHT AT REACH.
[2017-02-14 20:25] VITALS: BP 137/68
[2017-02-14] MEDS: SENNOSIDES 8.6 MG TABLET PO SCH (21:49)
--- NOTE | 2017-02-14 22:00 | NUR ---
HARNESS CUTTER/NOTES ROUTINE MEDS GIVEN AND PT URINATE SMALL AMOUNT IN THE DIAPER. NO LOWER ABDOMINAL PAIN AND NO DISTENDED NOTED.
--- NOTE | 2017-02-15 | NUR ---
ELEVATOR INSPECTOR/NOTES PT SLEEPING COMFORTABLY IN BED WITHOUT ANY ACUTE DISTRESS NOTED. IVF STILL INFUSING, DRESSING DRY AND INTACT. REPOSITION HER FOR COMFORT. KEPT HER WARM AND SAFE AT ALL TIMES. WILL CONTINUE TO MONITOR.
[2017-02-15] MEDS: IV NS 0.9% 1,000 ML IV PRN (05:34)
--- NOTE | 2017-02-15 06:52 | NUR ---
MS CRAB PICKER CLOSING NOTES PT BACK TO SLEEP AFTER MORNING CARE DONE. DRESSING CHANGES ALSO AND Z-GUARD APPLIED TO BUTTOCKS AREA AND REPOSITION PT FOR COMFORT. STILL ON DVT PUMP ORDERED. IVF STILL INFUSING ON HER LEFT FOREARM PATENT AND INTACT NO REDNESS NOTED. . STABLE BUBBA THE NIGHT AND SLEPT WELL. KEPT HER WARM AND COMFORTABLE AT ALL TIMES. BED ALARM SET FOR SAFETY. BED IN LOW AND LOCK IN POSITION. PLACE CALL LIGHT AT REACH. WILL ENDORSE TO AM NURSE FOR CONTINUITY OF CARE.
[2017-02-15 07:03] VITALS: BP 122/63
--- NOTE | 2017-02-15 07:25 | NUR ---
MS/RN AM NOTES RECEIVED PATIENT IN BED, AWAKE, ALERT, EQUATORIAL GUINEAN SPEAKING. WITHOUT SOB, DENIES PAIN, HOB ELEVATED, COMFORTABLE. IV LINE INTACT LFA, PATENT. KEPT CLEAN DRY, NEEDS MET, WITH CALL LIGHT WITHIN EASY REACH. WILL CONTINUE TO MONITOR ACCORDINGLY.
[2017-02-15 08:00] VITALS: BP_SYST 132; BP_DIAS 63; BP_DIAS 67
[2017-02-15] MEDS: LOSARTAN POTASSIUM 50 MG TABLET PO SCH (08:32)
[2017-02-15] MEDS: ASPIRIN 81 MG TAB.CHEW PO SCH (08:32)
[2017-02-15] MEDS: HYDROGEL DRESSING 90 GM TUBE TP SCH (08:33)
[2017-02-15 16:00] VITALS: BP 129/84
[2017-02-15] MEDS: RIVAROXABAN 10 MG TABLET PO SCH (16:36)
[2017-02-15] MEDS: CEFTRIAXONE 1 G in IV D5W 50 ML IV SCH (17:25)
--- NOTE | 2017-02-15 19:31 | NUR ---
MS/RN CLOSING NOTES PATIENT IN BED, AWAKE, ALERT, WITHOUT SOB, NO CHEST PAIN, ON RA, TOLERATING WELL. IV LINE INTACT LFA, NO REDNESS, NO PAIN. COMFORTABLE IN THE BED, TURNED REPOSITIONED EVERY 2 HOURS, HIP DRESSING CHANGED, KEPT CLEAN DRY, NO S/SX DYSURIA, INCONTINENT CARE PROVIDED, KEPT COMFORTABLE. PATIENT'S AND FAMILY NEEDS ANTICIPATED IN TIMELY MANNER, WITH CALL LIGHT WITHIN EASY REACH. ENDORSED TO THE CLINICAL SECRETARY NURSE ACCORDINGLY.
--- NOTE | 2017-02-15 19:35 | NUR ---
MS/RN OPENING NOTES PT AWAKE, RESTING COMFORTABLY IN BED. MALAY SPEAKING, ON ROOM AIR, NO SOB OR S/S OF DISTRESS NOTED. DENIES PAIN AT THIS TIME. DRESSING TO LEFT HIP C/D/I. IV TO LEFT FA PATENT AND INTACT RUNNING NS @ 75ML/HR ORDERED. NO SIGNS OF INFILTRATION NOTED. EXTREMITIES OFFLOADED. BED IN LOW/LOCKED POSITION WITH CALL LIGHT IN REACH. BED RAILS UPX2. WILL CONTINUE TO MONITOR
[2017-02-15 20:00] VITALS: BP 123/67
[2017-02-15 20:38] VITALS: BP 123/67
[2017-02-15] MEDS: SENNOSIDES 8.6 MG TABLET PO SCH ×2 (22:00→22:45)
--- NOTE | 2017-02-15 22:00 | NUR ---
MS/RN NOTES SCANNED SCHEDULED SEN[place]OT 8.6MG PO, OPENED AND SAVED. PT DISPLAYED COMPLIANCE UNTIL SHE SAW THE COLOR OF THE PILL AND THEN REFUSED. MEDICATION WASTED APPROPRIATELY IN WASTE CONTAINER AND IN PYXIS. DOCUMENTED "NON-ADMINISTERED" IN THE EMAR.
[2017-02-16] MEDS: IV NS 0.9% 1,000 ML IV PRN ×2 (00:38→22:02)
--- NOTE | 2017-02-16 04:10 | NUR ---
MS/RN NOTES PT AWAKE, REPOSITIONED AND OFFLOADED. MADE PT COMFORTABLE. ALL NEEDS MET AT THIS TIME. TRYING TO GO BACK TO SLEEP
--- NOTE | 2017-02-16 06:59 | NUR ---
MS/RN CLOSING NOTES PT ASLEEP, EASILY AROUSABLE TO NAME. HOB ELEVATED. A/OX2, ON ROOM AIR, NO SOB OR DISTRESS NOTED. DENIES PAIN. IV TO LFA RUNNING IVF ORDERED. ENCOURAGED PO FLUIDS THROUGHOUT NIGHT. TURNED/REPOSITIONED Q2H PER PROTOCOL AND OFFLOADED EXTREMITIES. DRESSING TO LEFT HIP SOILED WITH BLOOD, DRESSING CHANGED. ALL NEEDS MET AT ATTENDED TO. MADE PT COMFORTABLE THROUGHOUT SHIFT. BED IN LOW/LOCKED POSITION. CALL LIGHT IN REACH. BED RAILS UPX2. WILL ENDORSE TO AM SHIFT BRAXTON.
--- NOTE | 2017-02-16 07:30 | NUR ---
MS RN NOTES RECEIVED PATIENT ON BED, ALERT AND ABLE TO VERBALIZED HER NEEDS. BREATHING EVEN AND NON LABORED, DENIES ANY PAIN AT THIS TIME. NOTED WITH LEFT HIP DRESSING WITH MINIMAL DARK RED BLOOD DRAINAGE, PER STOVE INSTALLER REPORT DRESSING WAS CHANGED LAST NIGHT. IVF INFUSING WELL ORDERED. WILL CHANGE HER DRESSING TODAY AND NEEDED. CALL LIGHT WITHIN REACH, BED IN LOW POSITION FOR SAFETY MEASURES. WILL TURN Q2H TODAY AND TOLERATED..WILL CONTINUE TO MONITOR AND CONT SAME PLAN OF CARE.
[2017-02-16 08:00] VITALS: BP 133/56
[2017-02-16 08:10] VITALS: BP 133/56
--- NOTE | 2017-02-16 09:00 | NUR ---
MS RN NOTES DUE MEDS GIVEN. NEEDS ATTENDED AND ANTICIPATED
[2017-02-16] MEDS: ASPIRIN 81 MG TAB.CHEW PO SCH (09:33)
[2017-02-16] MEDS: LOSARTAN POTASSIUM 50 MG TABLET PO SCH (09:34)
[2017-02-16] MEDS: HYDROGEL DRESSING 90 GM TUBE TP SCH (09:36)
--- NOTE | 2017-02-16 13:00 | NUR ---
MS RN NOTES S/B DR. HILTON WITH NO NEW ORDERS MADE.
[2017-02-16 16:00] VITALS: BP 112/50
[2017-02-16 16:01] VITALS: BP 112/50
[2017-02-16] MEDS: RIVAROXABAN 10 MG TABLET PO SCH (16:38)
[2017-02-16] MEDS: CEFTRIAXONE 1 G in IV D5W 50 ML IV SCH (17:59)
--- NOTE | 2017-02-16 18:19 | NUR ---
MS RN NOTES PT AWAKE, TURNED AND REPOSITIONED Q2H AND NEEDED FOR COMFORT. ALL NEEDS MET AT THIS TIME. WILL CONTINUE TO MONITOR.
--- NOTE | 2017-02-16 19:11 | NUR ---
MS RN NOTES ENDORSED TO INCOMING SHIFT FOR CONTINUITY OF CARE.
--- NOTE | 2017-02-16 19:30 | NUR ---
RN NOTES: RECEIVED PATIENT AWAKE,SITTING COMFORTABLY IN BED, EATING HER DINNER WITH HER FAMILY AT BED SIDE. HOB ELEVATED. A/OX2, ON ROOM AIR, NO PAIN OR DISCOMFORT NOTED AT THIS TIME,NO SOB, IV SITE LFA WITH NS@75ML/HR VIA INFUSION PUMP. FOR TURNING/REPOSITIONED Q2H PER PROTOCOL AND OFFLOADED EXTREMITIES. DRESSING TO LEFT HIP DRY AND INTACT. KEPT IN COMFORTABLE POSITION. BED IN LOW/LOCKED POSITION. FALL,SAFETY AND ASPIRATION PRECAUTION OBSERVE,CALL LIGHT WITH IN REACH. BED RAILS UPX2. ON FREQUENT VISUAL CHECK.
[2017-02-16 20:00] VITALS: BP 115/74
[2017-02-16] MEDS: SENNOSIDES 8.6 MG TABLET PO SCH (22:01)
[2017-02-16] MEDS: NITROFURANTOIN/NITROFURAN MAC 100 MG CAPSULE PO SCH (22:01)
--- NOTE | 2017-02-16 22:02 | NUR ---
RN NOTES: NEW BAG OF NS STARTED AT 75CC/HR.DUE MEDICATION GIVEN, TURNING REPOSITIONING DONE.CALL LIGHT WITHIN REACH.
--- NOTE | 2017-02-17 00:09 | NUR ---
RN NOTES: TURNNG AND REPOSITIONING DONE, PATIENT PASS URINE IN THE DIAPER, CLEAN AND CHANGE,Z GUARD APPLIED ON THE BUTTOCKS AREA,KEPT IN COMFORTABLE POSITION, CALL LIGHT WITH IN REACH.
--- NOTE | 2017-02-17 02:19 | NUR ---
RN NOTES; ASLEEP AT SHORT INTERVALS AWAKE MOST OF THE TIME, NO PAIN OR DISCOMFORT AT THIS TIME, CALLS AND NEEDS ATTENDED, CALL LIGHT WITHIN REACH.
--- NOTE | 2017-02-17 03:45 | NUR ---
RN NOTES: DIAPER SOAKED WITH URINE, CLEAN AND CHANGE, LEFT HIP SURGICAL SITE, NOTED HALF SOAKED DRAINAGE, DRESSING CHANGE,TURN AND REPOSITION, MORNING CARE RENDERED, NO PAIN AND DISCOMFORT NOTED, PATIENT IS VERY COOPERATIVE AND IN PLEASANT MOOD.
--- NOTE | 2017-02-17 07:10 | NUR ---
RN NOTES: ENDORSED TO NEXT SHIFT FOR CONTINUITY OF CARE, PATIENT ABLE TO PASS URINE IN THE DIAPER, NO STRAIGHT CATH DONE,CALLS AND NEEDS ATTENDED,CALL LIGHT WITHIN REACH.
[2017-02-17 07:30] LABS: BASOPHILS % (AUTO) 0.5 % (0.0-2.0); EOSINOPHILS # (AUTO) 0.4 /CMM (0.0-0.7); EOSINOPHILS % (AUTO) 6.6 % (0.0-6.0); HEMATOCRIT 28 % (33-45); HEMOGLOBIN 9.2 g/dL (11.5-14.8); LYMPHOCYTES # (AUTO) 0.9 /CMM (0.8-4.8); LYMPHOCYTES % (AUTO) 15.9 % (20.0-44.0); MEAN CORPUSCULAR HEMOGLOBIN 30 PG (26.0-33.0); MEAN CORPUSCULAR HGB CONC 33 g/dl (31.0-36.0); MEAN CORPUSCULAR VOLUME 92 fL (82-100); MONOCYTES # (AUTO) 0.4 /CMM (0.1-1.30); MONOCYTES % (AUTO) 7.5 % (2.0-12.0); NEUTROPHILS # (AUTO) 3.8 /CMM (1.8-8.9); NEUTROPHILS % (AUTO) 69.5 % (43.0-81.0); PLATELET COUNT (AUTO) 218 /CMM (150-450); RDW COEFFICIENT OF VARIATION 15.5 (11.5-15.0); RED BLOOD CELL COUNT(AUTO) 3.08 MIL/uL (4.0-5.2); WHITE BLOOD COUNT (AUTO) 5.4 K/uL (4.3-11.0)
--- NOTE | 2017-02-17 07:30 | NUR ---
MS RN NOTES RECEIVED AWAKE WITH HOB ELEVATED, ALERT AND ORIENTED X 2, BUT WITH EPISODE OF FORGETFUL. BREATHING EVEN AND NON LABORED, DENIES ANY PAIN AT THIS TIME. LFA PIV INTACT AND PATENT. LEFT HIP DRESSING INTACT AND NOTED WITH MIN SEROSANGUINEOUS DISCHARGES, NO REDNESS NOTED ON THE SURROUNDING AREA. CALL LIGHT WITHIN REACH. WILL CONTINUE TO MONITOR.
[2017-02-17 07:53] LABS: CALCIUM, SERUM 8.3 mg/dL (8.5-10.1); CREATININE 0.6 mg/dL (0.6-1.3); MAGNESIUM 1.7 mg/dL (1.8-2.4); PHOSPHORUS 2.4 mg/dL (2.5-4.9); POTASSIUM 3.7 mmol/L (3.5-5.1)
[2017-02-17 08:00] VITALS: BP 142/74
[2017-02-17 08:46] VITALS: BP 142/74
[2017-02-17] MEDS: NITROFURANTOIN/NITROFURAN MAC 100 MG CAPSULE PO SCH (08:46)
[2017-02-17] MEDS: LOSARTAN POTASSIUM 50 MG TABLET PO SCH (08:46)
[2017-02-17] MEDS: ASPIRIN 81 MG TAB.CHEW PO SCH (08:46)
[2017-02-17] MEDS: HYDROGEL DRESSING 90 GM TUBE TP SCH (08:47)
[2017-02-17] MEDS ORDERED: ERGOCALCIFEROL (VITAMIN D 2) 50,000 UNIT CAPSULE PO SCH (09:00)
--- NOTE | 2017-02-17 09:00 | NUR ---
MS RN NOTES PATIENT ASSISTED TO SIT IN THE CHAIR, WELL TOLERATED. DENIES ANY PAIN OR ANY DISCOMFORT AT THIS TIME. WILL CONTINUE TO MONITOR.
--- NOTE | 2017-02-17 11:00 | NUR ---
MS RN NOTES TURNED AND REPOSITIONED Q2H AND NEEDED FOR COMFORT. ALL NEEDS MET AT THIS TIME. WOUND DRESSING DONE.
[2017-02-17] MEDS ORDERED: SECONDARY IV SET 1 EA INFUS.SET MC ONE (11:22)
[2017-02-17] MEDS: Magnesium 1GM/D5W 100ML PREMIX 100 ML IV SCH ×2 (11:27→12:47)
[2017-02-17] MEDS ORDERED: K PHOS NEUTRAL 250 MG TABLET PO ONE (11:30)
[2017-02-17] MEDS ORDERED: LEVO500T15 PO (12:10)
[2017-02-17] MEDS ORDERED: NITR100C15 PO (12:10)
--- NOTE | 2017-02-17 14:00 | NUR ---
MS RN NOTES I OFFERED FLU AND PNA VACCINES BUT MARK DTR IN LAW REFUSED.
--- NOTE | 2017-02-17 14:14 | NUR ---
MS RN NOTES REPORT GIVEN TO TRACE GARCIA AT [facility] FOR CONTINUITY OF CARE.
--- NOTE | 2017-02-17 15:00 | NUR ---
MS RN NOTES FAMILY MADE AWARE ABOUT DISCHARGE.
--- NOTE | 2017-02-17 15:27 | NUR ---
MS RN NOTES ALL DC INSTRUCTIONS, MEDICATION LIST, AND PAPERWORK ENDORSED TO THE 2 EMT STAFF. LFA PIV REMOVED AND PRESSURE DRESSING APPLIED. PATIENT LEFT VIA GURNEY IN STABLE CONDITION. WITH LT HIP DRESSING DRY AND INTACT.
== END 2017-02-17 15:10 | DRG 720 ==
LOC: ER 16:22 → TELE 17:56 → MED 02-14 09:01
PROVIDERS: ADMIT Nurse Practitioner Acute Care; ATTEND Nurse Practitioner Acute Care
DX: A41.9 Sepsis, unspecified organism (principal); I82.411 Acute embolism and thrombosis of right femoral vein; D68.59 Other primary thrombophilia; I48.91 Unspecified atrial fibrillation; N39.0 Urinary tract infection, site not specified; D64.9 Anemia, unspecified; I10 Essential (primary) hypertension; I25.10 Atherosclerotic heart disease of native coronary artery without angina pectoris; I70.0 Atherosclerosis of aorta; Z96.642 Presence of left artificial hip joint; Z74.01 Bed confinement status
CPT/HCPCS: 36415; 70450-TC; 71010-TC; 80048-TC; 80053-TC; 80061-TC; 80076-TC; 81000-TC; 83605-TC; 83735-TC; 84100-TC; 84443-TC; 84484-TC; 85025-TC; 85730-TC; 87040-TC; 87070-TC; 87081-TC; 87086-TC; 87186-TC; 87400; 97001-TC; 97003-TC; 97110-TC; 97116-TC; 97530-TC; A4606; A6209; A6248; A6253; A6402; J0696; J3475; J7030; J7040; J7060; Z7610